=== PATIENT | male | born 1955 | race Caucasian/White ===

== ENCOUNTER → 2016-03-30 | Outpatient (CLI) | payer MEDICAID ==
[~2016-03-30] MED LIST: ASPIRIN325 M1 PO; CLINDAMYCIN HC300 MG PO; FLAGYL 500MG.500 MG PO; LORTAB 5/500 501 TAB PO
== END ==
LOC: LAB 14:02
DX: R97.20 Elevated prostate specific antigen [PSA] (principal); N41.1 Chronic prostatitis; Z12.5 Encounter for screening for malignant neoplasm of prostate